=== PATIENT | female | born 1980 | race Caucasian/White ===

== ENCOUNTER 2016-08-01 21:09 | Emergency (ER) | payer BC ==
--- NOTE | ~2016-08-01 | ER ---
PATIENT'S NAME: LUL COLINDRES [facility] AGE: 36 Y [address] ROOM: [place] [address] LOCATION: ED ADMIT DATE: 08/01/2016 ER/Outpatient Report DISCHARGE DATE: 08/01/2016 FAMILY PHYSICIAN: Karmen Ugalde MD ATTENDING PHYSICIAN: Simon Lee TIME SEEN: 2125 hours. HISTORY OF PRESENT ILLNESS: The patient is a 36-year-old female who said she had been sick for 14 days with a sinus infection. Today, she is sensing some tingling in her hands, heavy feeling in her chest, she is questioned that her potassium maybe on the low side. ALLERGIES: BACTRIM, IMITREX, CT DYE, AND CLINDAMYCIN. CURRENT MEDICATIONS: See her copied list which was reviewed. MEDICAL HISTORY: Pott's. SURGERIES: T and A. she has had foot surgeries. REVIEW OF SYSTEMS: GENERAL: No fever or chills today. HEAD AND EENT: Has some nasal congestion. Denies sore throat. RESPIRATORY: Occasional cough and not been particularly productive. Feels slightly short of breath. CARDIOVASCULAR: No heart palpitations. SKIN: No recent rash. OBJECTIVE FINDINGS: VITAL SIGNS: Temperature is 98.2, respiratory rate 20, pulse 104, and her O2 saturation is 99%. GENERAL APPEARANCE: Alert, cooperative, in no obvious distress. HEAD AND EENT: Some nasal congestion. Throat did not appear red. LUNGS: Few inspiratory wheezes. HEART: No murmurs noted. Rate appeared regular. LABORATORY DATA AND X-RAYS: Her potassium is 3.9; otherwise, CMS is all normal values. CBC: White count PATIENT'S NAME: LUL COLINDRES [facility] AGE: 36 Y [address] ROOM: [place] [address] LOCATION: ED ADMIT DATE: 08/01/2016 ER/Outpatient Report DISCHARGE DATE: 08/01/2016 FAMILY PHYSICIAN: Karmen Ugalde MD ATTENDING PHYSICIAN: Simon Lee 10.2, hemoglobin 14.6. ASSESSMENT: 1. Resolving sinusitis and bronchitis. 2. History of Pott's. PLAN: She is going to take an extra potassium tonight. Recommend she use her inhalers every 6 hours. Follow up as needed. MADISON GUNTER FOR MD CASSIDY KAHN/modl /[id number] d: 08/02/16 0153 t: 08/02/16 1821, OUTPATIENT REPORT
[~2016-08-01 21:09] MED LIST: ASPIRIN EC81 MG PO; CLARITIN10 MG PO; GAVISCON ES TA1 EACH PO; KLOR CON PO; KLOR-CON 1010 MEQ PO; MAALOX ADVANCE355 ML PO; NASACORT16.9 ML NOSE; NEXIUM40 MG PO; OMNICEF 300MG300 MG PO; PROAIR HFA8.5 GM INH; SODIUM BICARBO650 MG PO; THERAPEUTIC M1 EAC1 PO; TOPROL XL25 MG PO; TUMS REGULAR ST1 TAB PO; TYLENOL EXTRA500 MG PO
[2016-08-01 21:52] LABS: BASOPHIL % 0.4 %; EOSINOPHIL # 0.6 K/uL (0.0-0.5); EOSINOPHIL % 5.4 %; HEMATOCRIT 45.2 % (33.0-46.0); HEMOGLOBIN 14.6 g/dL (11.0-15.0); IMMATURE GRANULOCYTE % 0.3 %; LYMPHOCYTE # 3.6 K/uL (0.8-4.0); LYMPHOCYTE % 35.1 %; MCH 31.5 pg (27.0-34.0); MCHC 32.3 gm/dL (32.0-36.5); MCV 97.6 fl (83.0-98.0); MONOCYTE # 0.6 K/uL (0.0-1.0); MONOCYTE % 5.6 %; MPV 9.2 fl (9.4-12.4); NEUTROPHIL # (ANC) 5.4 K/uL (1.8-7.8); NEUTROPHIL % 53.2 %; NRBC % 0 /100WBC (0-0.00); PLATELET COUNT 375 K/uL (150-450); RBC 4.63 M/uL (3.50-5.50); RDW-CV 13.1 % (11.9-14.6); WBC 10.2 K/uL (4.0-11.0)
[2016-08-01 22:07] LABS: ALBUMIN 3.9 gm/dL (3.5-5.0); ALK PHOS 71 IU/L (33-138); ALT 40 IU/L (12-78); ANION GAP 11.9 (10.0-19.0); AST 19 IU/L (10-40); BLOOD UREA NITROGEN 16 mg/dL (6-24); CALCIUM 8.8 mg/dL (8.5-10.5); CHLORIDE 108 mMol/L (96-110); CO2 26 mMol/L (22-32); ESTIMATED GFR (MDRD EQUATION) > 60; POTASSIUM 3.9 mMol/L (3.7-5.1); SODIUM 142 mMol/L (135-145); TOTAL BILIRUBIN 0.3 mg/dL (0.0-1.5); TOTAL PROTEIN 7.9 g/dL (6.0-8.4)
== END 2016-08-01 22:27 | disposition disaster alternative care site (69) ==
LOC: GMED 21:09
PROVIDERS: Emergency Medicine
DX: J32.9 Chronic sinusitis, unspecified (principal); J40 Bronchitis, not specified as acute or chronic; Z88.1 Allergy status to other antibiotic agents; Z91.041 Radiographic dye allergy status; Z88.8 Allergy status to other drugs, medicaments and biological substances; Z79.899 Other long term (current) drug therapy; Z79.82 Long term (current) use of aspirin

== ENCOUNTER 2016-09-25 21:02 | Emergency (ER) | payer BC ==
--- NOTE | ~2016-09-25 | ER ---
PATIENT'S NAME: LUL COLINDRES [facility] AGE: 36 Y [address] ROOM: [place] [address] LOCATION: [facility] ADMIT DATE: 09/25/2016 ER/Outpatient Report DISCHARGE DATE: 09/25/2016 FAMILY PHYSICIAN: Karmen Ugalde MD ATTENDING PHYSICIAN: Dalton Mock Time of Arrival: 2110 hours. Time of Evaluation: 2112 hours. CHIEF COMPLAINT: Tingling and pinching all over. HISTORY OF PRESENT ILLNESS: The patient states approximately 7 o'clock this evening while she was driving, she started having this tingling sensation all over with a pinching type pain feeling. She said normally she gets tingling with numbness, but now it is more tingling and pinching. She does have a frontal headache, which is similar to headaches that she has had in the past. She has been nauseated, but no vomiting. She had been feeling fine prior to this episode. She has not had any chest pain or shortness of breath. No abdominal pain. Normal bowel and bladder patterns. ALLERGIES: ON HER CHART AND REVIEWED BY ME. CURRENT MEDICATIONS: On her chart and reviewed by me. PAST MEDICAL HISTORY: Includes POTS, hypokalemia, asthma, chronic headaches, anxiety, depression. PAST SURGICAL HISTORY: Foot surgery, and tonsils and adenoids. SOCIAL HISTORY: Smokes half pack per day and has for the past 20+ years. Denies use of alcohol or drugs. REVIEW OF SYSTEMS: All negative other than those mentioned in the HPI. PHYSICAL EXAMINATION: VITAL SIGNS: She weighs 72.2 kg, blood pressure is 122/79, pulse of 87, respirations 16, temperature of 99.2 TemporalScanner, and O2 saturation is 97% on room air. [place] Coma Scale is 15. PATIENT'S NAME: LUL COLINDRES [facility] AGE: 36 Y [address] ROOM: [place] [address] LOCATION: [facility] ADMIT DATE: 09/25/2016 ER/Outpatient Report DISCHARGE DATE: 09/25/2016 FAMILY PHYSICIAN: Karmen Ugalde MD ATTENDING PHYSICIAN: Dalton Mock GENERAL: She is awake, alert, and oriented x4. SKIN: [place], warm, and dry. RESPIRATIONS: Even and nonlabored. Lung sounds are clear throughout. HEART: Regular rate and rhythm. ABDOMEN: Soft, nondistended. Bowel sounds are present. NEURO: She moves all extremities strongly and equally. She has normal speech. No slurring noted. She follows directions. She is calm and cooperative. LABORATORY DATA AND X-RAYS: Lab work was completed. CBC is within normal limits. Chem panel is within normal limits. Her sodium is 141, potassium of 4.0, chloride of 108. Clean- catch UA was obtained, it was negative for bacteria. The patient states she did take an extra potassium tonight around 7 o'clock when the symptoms started. IMPRESSION: 1. Headache. 2. Tingling sensation. 3. History of hypokalemia. PLAN: Home, rest, fluids. Continue current medications. If symptoms persist or worsen, she should follow up with her primary provider in the next 2 to 3 days or return to the ER as needed. She verbalized understanding. DAIANA ARAMBULA APRN FOR DO NABEEL HOPE/selina /[id number] d: 09/26/16 0207 t: 09/28/16 1233, OUTPATIENT REPORT
[2016-09-25 21:33] LABS: BILIRUBIN URINE NEGATIVE (NEGATIVE); BLOOD URINE NEGATIVE /UL (NEGATIVE); COLOR URINE STRAW (YELLOW); GLUCOSE URINE NEGATIVE (NEGATIVE); KETONE URINE NEGATIVE (NEGATIVE); LEUKOCYTES URINE NEGATIVE /UL (NEGATIVE); NITRITE URINE NEGATIVE (NEGATIVE); PROTEIN URINE NEGATIVE (NEGATIVE); SPEC GRAVITY URINE 1.005 (1.003-1.035); TURBIDITY URINE CLEAR (CLEAR); UROBILINOGEN URINE NORMAL (NORMAL)
[2016-09-25 21:42] LABS: BASOPHIL % 0.3 %; EOSINOPHIL # 0.4 K/uL (0.0-0.5); EOSINOPHIL % 4.2 %; HEMATOCRIT 43.3 % (33.0-46.0); HEMOGLOBIN 14.4 g/dL (11.0-15.0); IMMATURE GRANULOCYTE % 0.3 %; LYMPHOCYTE # 2.8 K/uL (0.8-4.0); LYMPHOCYTE % 31.4 %; MCH 32.4 pg (27.0-34.0); MCHC 33.3 gm/dL (32.0-36.5); MCV 97.3 fl (83.0-98.0); MONOCYTE # 0.5 K/uL (0.0-1.0); MONOCYTE % 5.7 %; MPV 9.2 fl (9.4-12.4); NEUTROPHIL # (ANC) 5.1 K/uL (1.8-7.8); NEUTROPHIL % 58.1 %; NRBC % 0 /100WBC (0-0.00); PLATELET COUNT 346 K/uL (150-450); RBC 4.45 M/uL (3.50-5.50); RDW-CV 13.3 % (11.9-14.6); WBC 8.8 K/uL (4.0-11.0)
[2016-09-25 21:58] LABS: ALBUMIN 3.9 gm/dL (3.5-5.0); CALCIUM 8.5 mg/dL (8.5-10.5); CREATININE 0.9 mg/dL (0.5-1.1); TOTAL PROTEIN 7.6 g/dL (6.0-8.4)
[2016-09-25 22:00] LABS: TOTAL BILIRUBIN 0.2 mg/dL (0.0-1.5)
== END 2016-09-25 22:24 | disposition disaster alternative care site (69) ==
LOC: GMED 21:02
PROVIDERS: Nurse Practitioner Family
DX: R51 Headache (principal); R20.2 Paresthesia of skin; F41.9 Anxiety disorder, unspecified; F32.9 Major depressive disorder, single episode, unspecified; J45.909 Unspecified asthma, uncomplicated; E87.6 Hypokalemia; F17.210 Nicotine dependence, cigarettes, uncomplicated; Z88.1 Allergy status to other antibiotic agents; Z91.041 Radiographic dye allergy status; Z88.8 Allergy status to other drugs, medicaments and biological substances; Z79.899 Other long term (current) drug therapy; Z98.890 Other specified postprocedural states